=== PATIENT | female | born 1960 | race Caucasian/White ===

== ENCOUNTER 2016-04-22 05:43 | Inpatient (IN) | payer OTHER ==
[2016-04-22] MEDS ORDERED: CEFAZOLIN 1 GM VIAL ONE (06:15)
[2016-04-22 06:47] LABS: BLOOD UREA NITROGEN 13 MG/DL (7-17); CALCIUM 8.9 MG/DL (8.4-10.2); CALCULATED OSMOLALITY 273 MOs/Kg (270-290); CHLORIDE 101 mEq/L (98-107); GLUCOSE 103 MG/DL (70-99); SODIUM LEVEL 142 mEq/L (137-146)
[2016-04-22] MEDS ORDERED: METOPROLOL (TOPROL-XL) 50 MG TAB PO PRN (06:57)
[2016-04-22] MEDS ORDERED: [UNRECOGNIZED DRUG - OTHER] PO PRN (06:57)
[2016-04-22] MEDS ORDERED: MECLIZINE 12.5 MG TAB PO PRN (06:57)
[2016-04-22] MEDS ORDERED: PSEUDOEPHEDRINE PO PRN (06:57)
[2016-04-22] MEDS ORDERED: ALPRAZOLAM 0.25 MG TAB PO PRN (06:57)
[2016-04-22] MEDS ORDERED: FEXOFENADINE PO PRN (06:57)
[2016-04-22] MEDS ORDERED: ALBUTEROL 6.7 GM MDI INH PRN (06:57)
--- NOTE | 2016-04-22 06:57 | HIMOPRPT ---
PREOPERATIVE DIAGNOSIS: Left knee valgus gonarthrosis POSTOPERATIVE DIAGNOSIS: Same PROCEDURE: Left total knee arthroplasty. FINDINGS: End-stage lateral compartment arthrosis with moderate patellofemoral degenerative changes and relative sparing of the medial compartment. SPECIMENS REMOVED: Portions of the distal femur, proximal tibia, and posterior patella. EBL: 30 mL. ANESTHESIA: General. COMPLICATIONS: None. SURGEON: Jaden Blount MD. CHEMICAL OPERATIONS SPECIALIST: ONUR [place]. TOURNIQUET TIME: 43 minutes at 250 mmHg. IMPLANTS: [employer] Triathlon total knee system, metal size 2 cruciate retaining femur; size 3 tibial base plate; size 3 x 9 mm polyethylene insert; 29 x 9 mm asymmetric patella button SIGNIFICANT HISTORY, INDICATIONS, AND CONSENT: Ale is a 55-year-old female with longstanding history of left knee pain recalcitrant to conservative treatment secondary to osteoarthritis. After discussing risks, benefits, and alternatives of non-operative treatment and operative intervention, the patient wished to proceed with surgical intervention and consent was obtained with potential benefits of improved knee pain and improved function. OPERATION IN DETAIL: The patient was seen in the preop holding area. The left lower extremity was signed. Consent was reviewed, questions were answered, H and P updated. SCD was placed on the right lower extremity. The patient was taken to the operative room, placed in supine position on the operative table, anesthesia placed monitoring devices and performed intubation. Tourniquet was placed high on the left lower extremity with the left lower extremity being sterilely prepped and draped in the usual orthopedic fashion. Time-out was performed. The patient received prophylactic antibiotics. Consensus was reached amongst participants in the OR suite. Esmarch was used to exsanguinate the limb. Tourniquet raised to 250 mmHg. Standard anterior approach to the knee was performed incising sharply through skin and then performed a medial parapatellar arthrotomy. The superficial MCL was carefully released subperiosteally of the proximal tibia medially. We then released anterior soft tissue structures, everted the patella and gently flexed the knee, being careful to avoid injury to the patellar tendon distally. Next, intramedullary guide was placed within the femur intramedullary canal. We then performed a distal femoral cut removing 8 mm, 5 degrees valgus. After a distal cut was made, this was sized using a posterior condyle referencing system to be a size 2 femur, size 2 cutting block was placed and distal femoral cuts were made in standard fashion. ACL was removed and PCL gently retracted. End-stage lateral compartment arthrosis with moderate degenerative changes to the patellofemoral joint and relative sparing of the medial compartment. Extramedullary guide was placed for a tibial cut, which was perpendicular to the tibia and in line with the tibial crest. Once this was placed, we removed 2- 3 mm from the high side with 2 mm removed from the more worn plateau. After tibial cut was made, we checked our alignment and found this to be quite appropriate. We then performed flexion-extension gap measuring, and again addressed our soft tissue balancing to appropriately balance the knee. Our tibial baseplate was sized and rotated in line with the medial 1/3 of the tibial tubercle. This was provisionally pinned and attention turned to our patella cut. Our patella was then sized, removing approximately 8 mm of bone after measuring 24 mm. 14-16 remained, this was sized to a 29 x 9 mm patella and the patella was drilled. Components were placed and provisional implants were found to be acceptable in regards to range of motion and ligamentous stability throughout the motion arc. We then performed our fin cut and drilled our femoral implant. Provisional implants were then removed. The cut surfaces were then thoroughly irrigated and dried for cementation. Cementation was being mixed on the back table while we injected Exparel within the deep structures of the knee being careful to aspirate prior to injection. 0.25% Marcaine was also injected at this time in standard fashion. We then began cementation of our tibial, femoral, and patellar components in standard fashion. After these were cemented and held until cement had hardened, excess cement was removed. Range of motion and stability were found to be appropriate. We then allowed tourniquet to be released and immaculate hemostasis was performed with Bovie cautery. Medial parapatellar arthrotomy was closed at the superomedial border of the patella with #1 Ethibond in an interrupted fashion. The remainder of the arthrotomy closed with #1 barbed PDS in a watertight closure. We used 2-0 Vicryl for subcutaneous closure and eunice for skin. Sterile soft tissue dressing was placed. The patient was placed in the GUNNAR hose aroused by Anesthesia and taken to postanesthesia care in stable condition. PLAN: The patient will be admitted to Orthopedic Service. Begin CPM in the PACU. Radiographs will be taken in the PACU. 24 hours perioperative antibiotics will be given with 14 days of DVT chemoprophylaxis, and physical therapy beginning this evening
[2016-04-22] MEDS ORDERED: TEMAZEPAM 15 MG CAP PO PRN (06:59)
[2016-04-22] MEDS ORDERED: MAGNESIUM HYDROXIDE 30 ML BOTTLE PO PRN (06:59)
[2016-04-22] MEDS ORDERED: HYDROmorphone 1 MG INJECTION IV PRN ×3 (06:59→07:06)
[2016-04-22] MEDS ORDERED: Aluminum;Magnesium;Simethicone 30 ML UDC PO PRN (06:59)
[2016-04-22] MEDS ORDERED: DIPHENHYDRAMINE 50 MG/ML VIAL IV PRN (06:59)
[2016-04-22] MEDS ORDERED: SODIUM CHLORIDE 0.9% 3 ML FLUSH FLUSH PRN (06:59)
[2016-04-22] MEDS ORDERED: NALOXONE 0.4 MG/ML AMPULE IV SCH (07:00)
[2016-04-22] MEDS ORDERED: Non-Formulary Medication ITEM (Cholecalciferol (Vitamin D3) [Vitamin D3] 1,000 UNIT) PO SCH (07:00)
[2016-04-22] MEDS ORDERED: TRANEXAMIC ACID 1,000 MG in NS 100 ML IV ONE (07:00)
[2016-04-22] MEDS ORDERED: Pharmacy Discontinue All Previous Acetaminophen Orders SCH (07:00)
[2016-04-22] MEDS ORDERED: SODIUM CHLORIDE 0.9% 3 ML FLUSH FLUSH SCH (07:00)
[2016-04-22] MEDS ORDERED: FENTANYL 100 MCG/2 ML VIAL IV PRN (07:06)
[2016-04-22] MEDS ORDERED: hydrALAZINE 20 MG/ML VIAL IV PRN (07:06)
[2016-04-22] MEDS ORDERED: SCOPOLAMINE TRANSDERMAL PATCH TOP ONE (07:06)
[2016-04-22] MEDS ORDERED: LABETALOL 20 MG/4 ML SYRINGE IV PRN (07:06)
[2016-04-22] MEDS ORDERED: BUPIVACAINE 0.5% 30 ML VIAL ONE (07:10)
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
[2016-04-22] MEDS ORDERED: FLUTICASONE PROPIONATE 16 GM BOT NAS SCH (08:00)
[2016-04-22] MEDS: BUPIVACAINE LIPOSOME/PF 1.3% 20 ML VIAL INF ONE ×2 (08:12→10:29)
[2016-04-22] MEDS ORDERED: LOSARTAN PO SCH (09:00)
[2016-04-22] MEDS ORDERED: METFORMIN HCL PO SCH (09:00)
[2016-04-22] MEDS ORDERED: [UNRECOGNIZED DRUG - OTHER] PO SCH (09:00)
[2016-04-22] MEDS ORDERED: Non-Formulary Medication ITEM (Budesonide/Formoterol Fumarate [Symbicort 160-4.5 Mcg Inh INH SCH (09:00)
[2016-04-22] MEDS ORDERED: SAXAGLIPTIN HCL PO SCH (09:00)
[2016-04-22] MEDS ORDERED: [UNRECOGNIZED DRUG - OTHER] PO SCH (09:00)
[2016-04-22] MEDS ORDERED: HYDROCHLOROTHIAZIDE T PO SCH (09:00)
[2016-04-22] MEDS ORDERED: FENTANYL 100 MCG/2 ML VIAL ONE (09:21)
[2016-04-22] MEDS: FENTANYL 100 MCG/2 ML VIAL IV PRN ×2 (09:25→09:40)
--- NOTE | 2016-04-22 09:53 | DIRPT ---
CLINICAL DATA: 55-year-old female status post knee surgery. Initial encounter. EXAM: PORTABLE LEFT KNEE - 1-2 VIEW COMPARISON: Left knee series 218 2015. FINDINGS: Portable AP and cross-table lateral views of the left knee demonstrating new sequelae of total knee arthroplasty. Hardware components appear intact and normally aligned. Postoperative changes to the surrounding soft tissues including gas within the joint space. Anterior skin eunice. Postoperative changes to the undersurface of the patella. IMPRESSION: Left total knee arthroplasty with no adverse features identified. Electronically Signed By: Antoinette Bartlett M.D. On: 04/22/2016 09:50
[2016-04-22] MEDS: ALBUTEROL 0.083% 3 ML NEB NEB SCH ×3 (10:59→19:47)
[2016-04-22] MEDS ORDERED: Vaccine Screening Complete SCH (11:00)
[2016-04-22] MEDS: BUDESONIDE 0.5 MG NEB NEB SCH ×2 (11:01→19:48)
[2016-04-22] MEDS: OXYCODONE HCL 5 MG TABLET PO PRN ×3 (11:19→21:35)
[2016-04-22] MEDS: Celecoxib 200 MG CAP PO SCH ×2 (11:22→17:33)
[2016-04-22] MEDS: Aspirin (Orange Enteric Coated) 325 mg tab PO SCH ×2 (11:22→17:33)
[2016-04-22] MEDS: FLUTICASONE PROPIONATE 16 GM BOT NAS SCH (11:23)
[2016-04-22] MEDS: LOSARTAN POTASSIUM 50 MG TAB PO SCH (11:24)
[2016-04-22] MEDS: LOSARTAN KCL/HCTZ 50-12.5 TAB PO SCH (11:24)
[2016-04-22] MEDS: METOPROLOL (TOPROL-XL) 100 MG TAB PO SCH (11:25)
[2016-04-22] MEDS: VITAMINS, MULTIPLE CAP PO SCH (11:25)
[2016-04-22] MEDS: TRAMADOL HCL 50 MG TAB PO SCH (11:42)
[2016-04-22] MEDS: Cefazolin 2gm/50 ml D5W 2 GM/50 ML RTU IV SCH ×2 (11:42→18:38)
[2016-04-22] MEDS ORDERED: KETOROLAC TROMETH 30 MG/ML VIAL IM ONE (12:14)
[2016-04-22] MEDS ORDERED: ONDANSETRON HCL 4 MG/2 ML VIAL IV ONE (12:14)
[2016-04-22] MEDS ORDERED: SUCCINYLCHOLINE 20 MG/1 ML INJ 10 ML MDV IV ONE (12:14)
[2016-04-22] MEDS ORDERED: LIDOCAINE 100 MG PFS IV ONE (12:14)
[2016-04-22] MEDS ORDERED: PROPOFOL 200 MG/20 ML VIAL IV ONE (12:14)
[2016-04-22] MEDS ORDERED: MIDAZOLAM 2 MG/2 ML VIAL IV ONE (12:14)
[2016-04-22] MEDS ORDERED: FENTANYL 100 MCG/2 ML VIAL IV ONE (12:14)
[2016-04-22] MEDS: ACETAMINOPHEN 325 MG/TAB TABLET PO SCH ×2 (13:48→22:58)
--- NOTE | 2016-04-22 14:16 | PCM.ORTHBL ---
- Subjective Hospital Day #: 1 Post Op Day: 0 (s/p L TKA ) Daily Assessment - Patient: Reports: No new complaints, Awake Alert Oriented x4 , Feels better, Tolerating liquids well, Afebrile, Other (currently in CPM) - Objective / Physical Exam Vital Signs: Temperature: 97.0 F (04/22/16 10:20) HR: 52 (04/22/16 11:20)RR: 18 (04/22/16 11: 20) BP: 147/55 (04/22/16 11:20)Pulse Ox: 94 (04/22/16 11:20) General: Alert, Oriented x3, Cooperative, No acute distress Musculoskeletal / Extremities: 2 plus Dorsalis Pedis Pulse, Dressing Clean/Dry/ Intact Neurological: Positive Sensation First Dorsal Web Space, Sensation to light touch intact, Extensor Hallicus Longus Intact, Flexor Hallicus Longus Intact, Dorsiflexion Intact, Plantarflexion Intact Skin: Warm,Dry and Intact Laboratory/Diagnostics Reviewed: Laboratory Results - last 24 hr 04/22/16 04/22/16 04/22/16 06:10 06:10 06:15 Hgb Hct Sodium 142 Potassium 3.7 Chloride 101 Carbon Dioxide 31 Anion Gap 14 BUN 13 Creatinine 0.70 Estimated GFR (MDRD) > 60 Glucose 103 H POC Capillary Glucose 96 Calculated Osmolality 273 Calcium 8.9 Blood Type A POSITIVE Antibody Screen Negative 04/22/16 04/22/16 09:11 10:03 Hgb 10.8 L Hct 34.0 L Sodium Potassium Chloride Carbon Dioxide Anion Gap BUN Creatinine Estimated GFR (MDRD) Glucose POC Capillary Glucose 99 Calculated Osmolality Calcium Blood Type Antibody Screen - Assessment and Plan (1) Status post total left knee replacement using cement Acute Z96.652 - PRESENCE OF LEFT ARTIFICIAL KNEE JOINT Comment/Plan: Post op check s/p L TKA doing well. Continue PT/OT as ordered. DVT ppx and post op anbx. elevate, ice, and rest.
--- NOTE | 2016-04-22 14:54 | SC.ANESPOS ---
Post-Anesthesia Note LOC: Fully Awake Post-Anesthesia Assessment: Awake, Returned to Baseline, Hemodynamically Stable , Pain Control Adequate Phase I & II Recovery Complete: Yes Apparent Anesthesia Complication: No : N PACU Discharge Time: 10:20 - Vital Signs Blood Pressure: 147/55 Pulse: 52 Resp Rate: 18 O2 Sat: 94 Temp: 97.0 F - Comments Anesthesia Discharge Time Report Time 10:20
[2016-04-22] MEDS: PANTOPRAZOLE 40 MG TAB PO SCH (17:33)
[2016-04-22] MEDS: SODIUM CHLORIDE 0.9% 3 ML FLUSH FLUSH SCH (17:33)
[2016-04-22] MEDS: DOCUSATE-SENNA CONCENTRATE TAB PO SCH (22:58)
[2016-04-22] MEDS: MONTELUKAST SODIUM 10 MG TAB PO SCH (22:58)
[2016-04-23] MEDS: ALBUTEROL 0.083% 3 ML NEB NEB SCH ×4 (02:13→20:46)
[2016-04-23] MEDS: Cefazolin 2gm/50 ml D5W 2 GM/50 ML RTU IV SCH (03:45)
[2016-04-23] MEDS: OXYCODONE HCL 5 MG TABLET PO PRN ×3 (04:08→16:32)
[2016-04-23] MEDS: SODIUM CHLORIDE 0.9% 3 ML FLUSH FLUSH SCH ×2 (06:25→16:34)
--- NOTE | 2016-04-23 06:42 | PCM.ORTHBL ---
- Subjective Hospital Day #: 2 Post Op Day: 1 (s/p L TKA ) Daily Assessment - Patient: Reports: No new complaints, Feels better, Pain is less, Tolerating Regular Diet, Voiding without difficulty, Afebrile, Ambulating with Physical Therapist - Objective / Physical Exam Vital Signs: Temperature: 97.9 F (04/23/16 05:01) HR: 58 (04/23/16 05:01)RR: 18 (04/23/16 05: 01) BP: 119/57 (04/23/16 05:01)Pulse Ox: 95 (04/23/16 05:01) General: Alert, Oriented x3, Cooperative, No acute distress Musculoskeletal / Extremities: 2 plus Dorsalis Pedis Pulse, Dressing Clean/Dry/ Intact Neurological: Positive Sensation First Dorsal Web Space, Sensation to light touch intact, Extensor Hallicus Longus Intact, Flexor Hallicus Longus Intact, Dorsiflexion Intact, Plantarflexion Intact Skin: Warm,Dry and Intact Laboratory/Diagnostics Reviewed: Laboratory Results - last 24 hr 04/22/16 04/22/16 04/22/16 06:10 06:10 09:11 Hgb 10.8 L Hct 34.0 L Sodium 142 Potassium 3.7 Chloride 101 Carbon Dioxide 31 Anion Gap 14 BUN 13 Creatinine 0.70 Estimated GFR (MDRD) > 60 Glucose 103 H POC Capillary Glucose Calculated Osmolality 273 Calcium 8.9 Blood Type A POSITIVE Antibody Screen Negative 04/22/16 10:03 Hgb Hct Sodium Potassium Chloride Carbon Dioxide Anion Gap BUN Creatinine Estimated GFR (MDRD) Glucose POC Capillary Glucose 99 Calculated Osmolality Calcium Blood Type Antibody Screen - Assessment and Plan (1) Status post total left knee replacement using cement Acute Z96.652 - PRESENCE OF LEFT ARTIFICIAL KNEE JOINT Present on Admission: No Comment/Plan: POD #1 s/p L TKA doing well. PT/OT today. Pain control with oral/iv meds, ice, elevation. DVT ppx with ASA 325mg po BID x 14 days. Dispo planning, likely d/c home tomorrow.
[2016-04-23] MEDS: ACETAMINOPHEN 325 MG/TAB TABLET PO SCH ×3 (06:47→21:44)
[2016-04-23] MEDS: PANTOPRAZOLE 40 MG TAB PO SCH ×2 (06:47→16:33)
[2016-04-23] MEDS: MetFORMIN, EXT REL 500 MG TAB PO SCH (06:51)
[2016-04-23] MEDS: SITAGLIPTIN 50 MG TAB PO SCH (06:51)
--- NOTE | 2016-04-23 06:52 | PCM.DCS92 ---
- Final/Secondary Discharge Diagnosis (1) Status post total left knee replacement using cement Acute Z96.652 - PRESENCE OF LEFT ARTIFICIAL KNEE JOINT Present on Admission: No Discharge Disposition: Discharge w/ Home Health Discharge Condition: Stable Cognitive Discharge Status: Unimpaired Fuctional Discharge Status: Recent lower extremety joint replacement Physician Follow up/Referrals: Jaden Blount MD [Staff Physician] - Keep Scheduled Appt New Prescriptions: Aspirin (OrangeEnteric Coated) [Ecotrin] 325 mg PO BIDWM #30 tablet Celecoxib (anti-inflammatory) [Celebrex] 200 mg PO BIDWM #60 capsule Docusate-Senna Concentrate [Senokot S or Barbara Colace] 2 tab PO HS #60 tablet Oxycodone Immediate Release [Oxycodone Immediate Release (OxyIR)] 5 - 10 mg PO Q4 PRN #40 tablet PRN Reason: MODERATE TO SEVERE PAIN Discharge Home Medication List Furosemide [Lasix] 40 mg PO DAILY PRN 07/11/13 [History Confirmed 04/22/16 Last Taken 04/19/16] Losartan/Hydrochlorothiazide [Hyzaar 100-12.5 Tablet] 1 tab PO DAILY 07/11/13 [ History Confirmed 04/22/16 Last Taken 04/22/16 05:00] Metoprolol Succinate [Toprol Xl] 100 mg PO QAM 07/11/13 [History Confirmed 04/22 Last Taken 04/22/16 05:00] Potassium Chloride [Klor-Con M10] 10 - 20 meq PO .PRNWITHLASIX PRN 07/11/13 [ History Confirmed 04/22/16 Last Taken 04/19/16] Vitamins, Multiple [Unicap] 1 cap PO DAILY 07/11/13 [History Confirmed 04/22/16 Last Taken 04/21/16 08:00] Albuterol Sulfate [Proair Hfa] 2 puff INH Q4-6H PRN 10/23/15 [History Confirmed 04/22/16 Last Taken 03/25/16] Budesonide/Formoterol Fumarate [Symbicort 160-4.5 Mcg Inhaler] 2 puff INH DAILY 10/23/15 [History Confirmed 04/22/16 Last Taken 04/21/16 08:00] Citalopram (anti-depressant) [Celexa] 20 mg PO DAILY 10/23/15 [History Confirmed 04/22/16 Last Taken 04/18/16] Dexlansoprazole [Dexilant] 60 mg PO DAILY 10/23/15 [History Confirmed 04/22/16 Last Taken 04/22/16 05:00] Fexofenadine/Pseudoephedrine [Mildred-D 24 Hour Tablet] 1 each PO DAILY PRN 09/02 [History Confirmed 04/22/16 Last Taken 04/15/16] Lactobac Cmb #3/Fos/Pantethine [Probiotic & Acidophilus Cap] 1 each PO BID #30 capsule 10/23/15 [Rx Confirmed 04/22/16 Last Taken 04/22/16 05:00] Montelukast Sodium [Singulair] 10 mg PO HS 10/23/15 [History Confirmed 04/22/16 Last Taken 04/20/16] Alprazolam [Xanax] 0.25 mg PO DAILY PRN 03/27/16 [History Confirmed 04/22/16 Last Taken 04/19/16] Cholecalciferol (Vitamin D3) [Vitamin D3] 1,000 unit PO WEEKLY 03/27/16 [ History Confirmed 04/22/16 Last Taken 04/20/16] Fluticasone Propionate [Flonase] 2 spray MARCELINA DAILY 03/27/16 [History Confirmed 04/22/16 Last Taken 04/18/16] Hydrocodone Bit/Acetaminophen [[place] 5-325 Tablet] 1 - 2 tabs PO Q6H PRN [History Confirmed 04/22/16 Last Taken 04/18/16] Levothyroxine [Synthroid, Levoxyl] 12.5 mcg PO .EVERYOTHERDAY 03/27/16 [History Confirmed 04/22/16 Last Taken 04/21/16 08:00] Meclizine HCl [Antivert] 12.5 mg PO DAILY PRN 03/27/16 [History Confirmed Last Taken 04/22/16 05:00] Metoprolol Succinate (XL) [Toprol Xl] 50 mg PO DAILY PRN 03/27/16 [History Confirmed 04/22/16 Last Taken 04/18/16] Saxagliptin HCl/Metformin HCl [Kombiglyze Xr 2.5-1,000 mg Tab] 1 each PO DAILY 03/27/16 [History Confirmed 04/22/16 Last Taken 04/21/16 08:00] Simvastatin [Zocor] 40 mg PO .EVERYOTHERDAY 03/27/16 [History Confirmed Last Taken 04/21/16 08:00] Tramadol HCl 50 mg PO DAILY 03/27/16 [History Confirmed 04/22/16 Last Taken 06/06 08:00] Levothyroxine Sodium 25 mcg PO DAILY 04/22/16 [History Confirmed 04/22/16 Last Taken 04/22/16 05:00] Aspirin (OrangeEnteric Coated) [Ecotrin] 325 mg PO BIDWM #30 tablet 04/23/16 [ Rx Last Taken Unknown] Celecoxib (anti-inflammatory) [Celebrex] 200 mg PO BIDWM #60 capsule 04/23/16 [ Rx Last Taken Unknown] Docusate-Senna Concentrate [Senokot S or Barbara Colace] 2 tab PO HS #60 tablet 08/04 [Rx Last Taken Unknown] Oxycodone Immediate Release [Oxycodone Immediate Release (OxyIR)] 5 - 10 mg PO Q4 PRN #40 tablet 04/23/16 [Rx Last Taken Unknown] Diet at Discharge: Diabetic Activity: Limited, No Heavy Lifting, No Driving Call Office For: Worsening Symptoms, Wound is Draining Pus, Fever over 101 F, Pain Uncontrolled By Meds Discontinue use of:: Alcohol, All Illegal Substances, All Types of Tobacco - DC Summary Notes Hospital Course Note:: Discharge summary on patient named KENROY MENJIVAR admitted to [facility] on 04/22/16 by Jaden Blount MD. Date of discharge is [ HPI: 55-year-old female with history of left knee pain secondary to underlying osteoarthritis having failed extensive outpatient conservative treatment including activity modification, home exercise program, weight loss, anti- inflammatories [id number], and cortisone injection. Patient elected to have left total knee arthroplasty. Hospital course: Postoperatively patient was transferred to [facility] where physical therapy was started postop day 0. Pain was controlled with oral and IV medications. DVT prophylaxis with aspirin 325 mg b.i.d. times 14 days. Patient was doing well postoperatively day 1 and day 2 with physical therapy and wished to go home with home health. Discharge instructions: Prescriptions provided for pain medication take as directed, DVT prophylaxis with aspirin 325 mg p.o. b.i.d. for 14 days postoperatively, stool softener, and Celebrex. Patient will follow-up as scheduled with Dr. Blount in clinic. Dressings to remain clean dry and intact to be removed in the office. Contact our office with any questions or concerns prior to follow-up.]. Medication Instructions: Rx on Chart Continue Ice Packs/Ice Machine to Operative Area: Yes Activity as Tolerated: Yes Weight Bearing: Full Current Dressing: Aquacel Dressing Care: Keep Wound Clean & Dry, No Tub Baths, Do Not Change Dressing - Consults/Home Health Outpatient Consults: Home Health - Physical Exam Vital Signs: Initial Vitals Temperature 97.8 F 04/22/16 06:27 Pulse Rate 57 L 04/22/16 06:27 Respiratory Rate 18 04/22/16 06:27 Blood Pressure 127/58 L 04/22/16 06:27 Pulse Oxygen Saturation 96 04/22/16 06:27
[2016-04-23 07:14] LABS: MPV 8.8 fL (7.4-10.4)
[2016-04-23 07:44] LABS: BLOOD UREA NITROGEN 14 MG/DL (7-17); CALCIUM 8.9 MG/DL (8.4-10.2); CALCULATED OSMOLALITY 264 MOs/Kg (270-290); CHLORIDE 96 mEq/L (98-107); GLUCOSE 112 MG/DL (70-99); SODIUM LEVEL 136 mEq/L (137-146)
[2016-04-23] MEDS: BUDESONIDE 0.5 MG NEB NEB SCH ×2 (07:52→20:49)
[2016-04-23] MEDS ORDERED: Remove Transdermal Scopolamine Patch after 24 hours ONE (08:00)
[2016-04-23] MEDS ORDERED: PNEUMOCOCCAL 0.5 ML VIAL IM ONE (08:00)
[2016-04-23] MEDS: Aspirin (Orange Enteric Coated) 325 mg tab PO SCH ×2 (08:11→17:21)
[2016-04-23] MEDS: Celecoxib 200 MG CAP PO SCH ×2 (08:11→16:33)
[2016-04-23] MEDS: TRAMADOL HCL 50 MG TAB PO SCH (08:11)
[2016-04-23] MEDS: METOPROLOL (TOPROL-XL) 100 MG TAB PO SCH (08:11)
[2016-04-23] MEDS: LOSARTAN POTASSIUM 50 MG TAB PO SCH (08:12)
[2016-04-23] MEDS: FLUTICASONE PROPIONATE 16 GM BOT NAS SCH (08:13)
[2016-04-23] MEDS: LEVOTHYROXINE 25 MCG (0.025 MG) TAB PO SCH (08:14)
[2016-04-23] MEDS: LOSARTAN KCL/HCTZ 50-12.5 TAB PO SCH (08:14)
[2016-04-23] MEDS: VITAMINS, MULTIPLE CAP PO SCH (08:17)
[2016-04-23] MEDS: FEXOFENADINE HCL 180 MG TAB PO PRN (08:41)
[2016-04-23] MEDS: PSEUDOEPHEDRINE PO PRN (08:41)
[2016-04-23] MEDS ORDERED: SIMVASTATIN 40 MG TAB PO SCH (09:00)
[2016-04-23] MEDS ORDERED: LEVOTHYROXINE 25 MCG (0.025 MG) TAB PO SCH (09:00)
[2016-04-23] MEDS: HYDROmorphone 1 MG INJECTION IV PRN (19:54)
[2016-04-23] MEDS: DOCUSATE-SENNA CONCENTRATE TAB PO SCH (21:01)
[2016-04-23] MEDS: MONTELUKAST SODIUM 10 MG TAB PO SCH (21:02)
[2016-04-24] MEDS: OXYCODONE HCL 5 MG TABLET PO PRN ×3 (00:41→11:00)
[2016-04-24] MEDS: ALBUTEROL 0.083% 3 ML NEB NEB SCH ×3 (01:53→13:17)
[2016-04-24 06:06] VITALS: TEMP 97.5
[2016-04-24 06:08] VITALS: BMI 31.8
[2016-04-24] MEDS: PANTOPRAZOLE 40 MG TAB PO SCH (06:32)
[2016-04-24] MEDS: SODIUM CHLORIDE 0.9% 3 ML FLUSH FLUSH SCH (06:33)
[2016-04-24] MEDS: ACETAMINOPHEN 325 MG/TAB TABLET PO SCH (06:33)
[2016-04-24] MEDS: MetFORMIN, EXT REL 500 MG TAB PO SCH (06:34)
[2016-04-24] MEDS: SITAGLIPTIN 50 MG TAB PO SCH (06:35)
[2016-04-24 07:08] LABS: MPV 8.8 fL (7.4-10.4)
--- NOTE | 2016-04-24 07:52 | PCM.ORTHBL ---
- Subjective Hospital Day #: 3 Post Op Day: 2 (s/p L TKA ) Daily Assessment - Patient: Reports: No new complaints, Awake Alert Oriented x4 , Tolerating Regular Diet, Voiding without difficulty, Afebrile, Ambulating with Physical Therapist - Objective / Physical Exam Vital Signs: Temperature: 97.5 F (04/24/16 06:00) HR: 71 (04/24/16 06:00)RR: 18 (04/24/16 06: 00) BP: 119/56 (04/24/16 06:00)Pulse Ox: 93 (04/24/16 06:00) General: Alert, Oriented x3, Cooperative, No acute distress Musculoskeletal / Extremities: 2 plus Dorsalis Pedis Pulse, Dressing Clean/Dry/ Intact Neurological: Positive Sensation First Dorsal Web Space, Sensation to light touch intact, Extensor Hallicus Longus Intact, Flexor Hallicus Longus Intact, Dorsiflexion Intact, Plantarflexion Intact Skin: Warm,Dry and Intact Laboratory/Diagnostics Reviewed: Laboratory Results - last 24 hr 04/23/16 04/23/16 04/24/16 06:42 16:46 05:11 WBC RBC Hgb Hct MCV MCH MCHC RDW Plt Count MPV Sodium 136 L Potassium 4.1 Chloride 96 L Carbon Dioxide 29 Anion Gap 15 BUN 14 Creatinine 0.70 Estimated GFR (MDRD) > 60 Glucose 112 H POC Capillary Glucose 135 H 109 H Calculated Osmolality 264 L Calcium 8.9 04/24/16 05:40 WBC 7.1 RBC 3.98 L Hgb 10.2 L Hct 31.6 L MCV 79 L MCH 25.6 L MCHC 32.3 L RDW 17.2 H Plt Count 323 MPV 8.8 Sodium Potassium Chloride Carbon Dioxide Anion Gap BUN Creatinine Estimated GFR (MDRD) Glucose POC Capillary Glucose Calculated Osmolality Calcium - Assessment and Plan (1) Status post total left knee replacement using cement Acute Z96.652 - PRESENCE OF LEFT ARTIFICIAL KNEE JOINT Present on Admission: No Comment/Plan: POD #2 Status post left total knee arthroplasty with patient doing well with PT. DVT prophylaxis as ordered. Disposition, likely home today with home health if continuing to do well with physical therapy. Prescriptions on chart and follow-up scheduled with Dr. Blount.
[2016-04-24] MEDS: BUDESONIDE 0.5 MG NEB NEB SCH (08:07)
[2016-04-24] MEDS: FLUTICASONE PROPIONATE 16 GM BOT NAS SCH (08:30)
[2016-04-24] MEDS: Celecoxib 200 MG CAP PO SCH (08:30)
[2016-04-24] MEDS: TRAMADOL HCL 50 MG TAB PO SCH (08:30)
[2016-04-24] MEDS: Aspirin (Orange Enteric Coated) 325 mg tab PO SCH (08:30)
[2016-04-24] MEDS: LEVOTHYROXINE 25 MCG (0.025 MG) TAB PO SCH (08:35)
[2016-04-24] MEDS: LOSARTAN KCL/HCTZ 50-12.5 TAB PO SCH (08:35)
[2016-04-24] MEDS: METOPROLOL (TOPROL-XL) 100 MG TAB PO SCH (08:35)
[2016-04-24] MEDS: LOSARTAN POTASSIUM 50 MG TAB PO SCH (08:35)
[2016-04-24] MEDS: PSEUDOEPHEDRINE PO PRN (08:41)
[2016-04-24] MEDS: FEXOFENADINE HCL 180 MG TAB PO PRN (08:41)
[2016-04-24] MEDS: HYDROmorphone 1 MG INJECTION IV PRN (12:56)
[2016-04-24] MEDS: VITAMINS, MULTIPLE CAP PO SCH (13:07)
[2016-04-24 14:08] VITALS: BP 118/70; PULSE 86
[2016-04-27] MEDS ORDERED: CHOLECALCIFEROL 1000 UNITS TAB PO SCH (12:00)
== END 2016-04-24 14:20 | disposition home health service (06) | DRG 470 ==
LOC: SDC 05:43 → MPS3 10:21
PROVIDERS: ADMIT Orthopaedic Surgery; ATTEND Orthopaedic Surgery
PROC: 0SRD0J9 Replacement of Left Knee Joint with Synthetic Substitute, Cemented, Open Approach (ICD-10-PCS; principal; 2016-04-22 07:15)
DX: M17.12 Unilateral primary osteoarthritis, left knee (principal); I10 Essential (primary) hypertension; Z88.8 Allergy status to other drugs, medicaments and biological substances; K21.9 Gastro-esophageal reflux disease without esophagitis; M54.5 Low back pain; J45.909 Unspecified asthma, uncomplicated; E11.9 Type 2 diabetes mellitus without complications; Z87.891 Personal history of nicotine dependence; Z79.899 Other long term (current) drug therapy; Z79.82 Long term (current) use of aspirin; Z23 Encounter for immunization
CPT/HCPCS: 80048; 82962; 85014; 85018; 85027; 86850; 86900; 86901; 90471; 90732; 94640; 97161; 97165; C9290; G0237; J0330; J0690; J1170; J1885; J2001; J2250; J2405; J3010; J3490; J7030